=== PATIENT | female | born 1965 | race Caucasian/White ===

== ENCOUNTER 2017-03-05 10:40 | Emergency (ER) | payer OTHER | END 2017-03-05 13:21 | disposition home or self-care (01) | LOC: FER 10:40 | DX: M54.12 Radiculopathy, cervical region (principal); M54.6 Pain in thoracic spine; I10 Essential (primary) hypertension; F17.210 Nicotine dependence, cigarettes, uncomplicated; V49.40XA Driver injured in collision with unspecified motor vehicles in traffic accident, initial encounter; Y92.410 Unspecified street and highway as the place of occurrence of the external cause | CPT/HCPCS: 70450; 72072; 72125; 73030; J2270 ==

== ENCOUNTER 2017-03-11 08:12 | Emergency (ER) | payer OTHER | END 2017-03-11 09:22 | disposition home or self-care (01) | LOC: FER 08:12 | DX: M25.511 Pain in right shoulder (principal); V89.2XXA Person injured in unspecified motor-vehicle accident, traffic, initial encounter | CPT/HCPCS: J1885 ==